=== PATIENT | male | born 2000 | race Caucasian/White ===

== ENCOUNTER 2021-01-20 18:54 | Emergency (ER) | payer BC ==
[~2021-01-20] VITALS: Ht 193 cm; Wt 90.7 kg
[~2021-01-20 18:54] MED LIST: AMOX50SU PO
[2021-01-20] MEDS ORDERED: THERA-D2000 UNIT PO (19:37)
== END 2021-01-20 21:48 | disposition home or self-care (01) ==
LOC: ER 18:54
DX: S92.145A Nondisplaced dome fracture of left talus, initial encounter for closed fracture (principal); M54.6 Pain in thoracic spine; V86.56XA Driver of dirt bike or motor/cross bike injured in nontraffic accident, initial encounter
CPT/HCPCS: 29515; 72070; 73610; 99283-25; A9270; J1885